=== PATIENT | female | born 1945 | race Caucasian/White ===

== ENCOUNTER 2024-07-31 09:19 | Day surgery (SDC) | payer MEDICARE, MEDICAID, SELFPAY ==
[2024-07-31] MEDS: Tropicam./Phenyleph. (1/2.5%) 5 ML BTL OS ×3 (09:47→10:03)
[2024-07-31 09:49] VITALS: BP 142/75; PULSE 81; RESP 20; TEMP 36.1; O2SAT 98
--- NOTE | 2024-07-31 10:12 | W.ANESPRE ---
General Info Date of Service Date Performed: 07/31/24 Height: 5 ft 5 in Weight: 91 kg Body Mass Index (BMI): 33.3 Surgical Procedure: Operation Date: 07/31/24 10:40 Proposed Procedure Side Surgeon p Cataract Extraction with IOL Implant Left Donte Salazar MD Actual Procedure Side Surgeon p Cataract Extraction with IOL Implant Left Donte Salazar MD Pre-Op Diagnosis Post-Op Diagnosis CATARACT OS CATARACT OS Meds Allergies and Home Medications Allergies Allergy/AdvReac Type Severity Reaction Status Date / Time letrozole Allergy Severe Other (See Verified 07/31/24 09:48 Comment) meperidine (From Demerol) Allergy Other (See Verified 07/31/24 09:48 Comment) Home Medication ?Medication ?Instructions ?Recorded albuterol sulfate 90 mcg/actuation 2 puff inhalation Q4H PRN 11/07/21 aerosol inhaler atorvastatin 40 mg tablet 40 mg PO DAILY 11/07/21 fluticasone furoate 200 1 inh inhalation DAILY 11/07/21 mcg-vilanterol 25 mcg/dose inhalation powder (Breo Ellipta) lorazepam 1 mg tablet 1 mg PO TID PRN 11/07/21 losartan 50 mg tablet 50 mg PO DAILY 11/07/21 acetaminophen 500 mg tablet 500 mg PO Q6H PRN 02/14/22 (Tylenol Extra Strength) vg-ks-oadw-FA-Ca carb-vit K 1 tab PO DAILY 02/14/22 Current Visit Medications: Current Medications Generic Name Dose Route Start Last Admin Trade Name Freq PRN Reason Stop Dose Admin Acetaminophen 1,000 mg 07/31/24 07:15 Acetaminophen 500 Mg Tab PO 08/30/24 07:14 Q4H PRN PRN Balanced Salt Solution 500 ml 07/31/24 07:15 Balanced Salt Soln.-Plus 500 Ml Bag OP 08/30/24 07:14 DIRECTED INOCENCIA Miscellaneous Medication 0 ml 07/31/24 07:15 Prednisolone 1%, Moxifloxacin 0.5%, Bromfenac 0.09% 5.6ml Btl OS 08/30/24 07:14 DIRECTED INOCENCIA Miscellaneous Medication 0 ml 07/31/24 08:00 07/31/24 10:03 Tropicam./Phenyleph. (1/2.5%) 5 Ml Btl OS 08/30/24 07:59 1 drp DIRECTED INOCENCIA Administration Tetracaine HCl 0 ml 07/31/24 07:15 Tetracaine 0.5% 4 Ml Btl OS 08/30/24 07:14 DIRECTED INOCENCIA PFSH Active Problems Active Problems: Problem Status Onset Code Posterior subcapsular age-related cataract of left eye Acute H25.042 Cortical age-related cataract, left eye Acute H25.012 Nuclear age-related cataract, left eye Acute H25.12 Hyposmia Acute R43.8 Medical History Medical History Lung cancer in remission per pt Hx of smoking Alopecia Asthma Hypertensive disorder Generalized anxiety disorder Overweight Mixed hyperlipidemia Primary malignant neoplasm of 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, 2000 - treated with radiation per patient 02/14/22 Surgical History Surgical History History of breast biopsy 2000 Hx of tubal ligation History of total replacement of right hip 1998 Hx of colonoscopy Tobacco Smoking/Tobacco Use Status: Former Tobacco Use Alcohol Alcohol Intake: never Substance Use Substance use: Daily Substance use type: marijuana Details: 07/31/24: pt smoked marijuana 07/30/24 Vital Signs and Lab Results Vital Signs Most Recent Vital Signs in EMR: Most Recent Vital Signs Temp Pulse Resp BP Pulse Ox 36.1 C L 81 20 142/75 H 98 07/31/24 09:49 07/31/24 09:49 07/31/24 09:49 07/31/24 09:49 07/31/24 09:49 Lab Results Blood Type / Crossmatch: No Data to Display Complete Blood Count: No Data to Display Complete Metabolic Panel: No Data to Display Liver Function Panel: No Data to Display Coagulation Panel: No Data to Display Cardiac Panel: No Data to Display Arterial Blood Gas: No Data to Display Venous Blood Gas: No Data to Display Pancreas Panel: No Data to Display Thyroid Panel: No Data to Display Infectious Disease: No Data to Display Blood Cultures: No Data to Display Toxicology Panel: No Data to Display Anesthesia Assessment and Plan Anesthesia History Personal History: No History of Anesthesia Complications Family History: No Family History of Anesthesia Complications Exercise Tolerance Exercise Tolerance: Metabolic Equivalents>4 Pertinent Negatives Pertinent Negatives: No Symptoms of GERD Cardiac & Pulmonary Exam Cardiac Exam: Normal S1/S2 Heart Sounds Pulmonary Exam: Clear Bilateral Breath Sounds Implantable Cardiac Device Does patient have a Pacemaker or an ICD?: No Airway Exam Known Difficult Airway: No Mallampati Class: 2 Mouth Opening: Normal (> 3cm) Thyromental Distance: Greater than 3 cm Neck Range of Motion: Full ROM Neck Circumference: Normal Teeth Condition: Normal Dentition ASA Classification ASA Score: ASA 3 Emergency Case?: No NPO Status NPO Status: NPO Clears >2 hours, Solids >8 hours Anesthesia Plan Resuscitation Status: Full Code Anesthesia Technique: MAC Anesthesia Airway Planned: Natural Airway Monitors Used: Standard Monitors
[2024-07-31 10:13] VITALS: BMI 33.3
[2024-07-31] MEDS: Povidone-Iodine Ophth 30 ML BTL (10:31)
[2024-07-31] MEDS: Tetracaine 0.5% 4 ML BTL OS (10:31)
[2024-07-31] MEDS: Balanced Salt Soln.-PLUS 500 ML BAG OP (10:37)
[2024-07-31] MEDS: Duovisc Viscoelastic System EACH 1 EACH (10:37)
[2024-07-31] MEDS: Lidocaine 1% Pres-Free 5 ML VIAL (10:38)
[2024-07-31] MEDS: Prednisolone 1%, Moxifloxacin 0.5%, Bromfenac 0.09% 5.6ML BTL OS (10:39)
[2024-07-31 10:58] VITALS: BP 124/64; PULSE 73; RESP 16; TEMP 36.8; O2SAT 98
--- NOTE | 2024-07-31 10:59 | ROE_ITS ---
Date of service: 07/31/24 Time of Service: 11:00 Operative Note Operative Note DATE OF PROCEDURE: 07/31/24 PRE-OP DIAGNOSIS: Nuclear/cortical/posterior subcapsular cataract, left eye POST-OP DIAGNOSIS: same PROCEDURE: Cataract extraction using phacoemulsification with intraocular lens implant, left eye SURGEON: Donte Salazar ANESTHESIA TYPE: Local By Surgeon and MAC Refer to Anesthesia Record PATHOLOGY: none sent COMPLICATIONS: None Patient was transported to: same day Patient's condition: stable Implants: Jd Clareon [id number] Indications: Progressive decreased vision due to cataract, left eye Procedure Description: CATARACT SURGERY OPERATIVE REPORT PREOPERATIVE DIAGNOSIS: Nuclear/cortical/posterior subcapsular cataract, left eye POSTOPERATIVE DIAGNOSIS: Same OPERATION: Cataract extraction using phacoemulsification with posterior chamber intraocular lens implant, left eye. IOL: IOL Stopperer Assembler/Model: Jd Clareon [id number] IOL Power: + 20.5 diopters IOL Serial Number: [id number] Optic Diameter: 6.0mm Haptic/Overall Diameter: 13.0mm PHACO INFO: Jd [employer]urion Vision System with OZil and Active Fluidics Cumulative Dispersed Energy (CDE): 7.77 seconds SURGEON: Donte Salazar MD, KHADIJAH ANESTHESIA: Monitored Anesthesia Care (MAC), with local sub-tenon's anesthetic infiltration COMPLICATIONS: None SPECIMENS: None INDICATIONS FOR PROCEDURE: The patient is a 79-year-old lady with history of diminished visual acuity in her left eye secondary to the development of nuclear/cortical/posterior subcapsular cataract. She is significantly symptomatic that she desires cataract surgery in attempt to improve and maximize her vision. The option of cataract surgery was offered to the patient and she wished to proceed. See office notes for detailed information. PROCEDURE: The correct surgical eye was identified and marked as the left eye and the pupil was dilated in the preoperative area using mydriatics and cycloplegics. The dilated pupil size was 7.0 mm. Oral sedation was administered in the form of an Imprimis MKO Melt (midazolam 3mg/ketamine 25mg/ondansetron 2mg). The patient was brought to the operating room where cardiopulmonary monitoring was instituted and surgical time-out was performed, confirming the correct operative eye and IOL power. Topical anesthesia was administered and ophthalmic povidone-iodine 5% was instilled into the conjunctival fornices. The dionicio-ocular area was prepped with Betadine 10% solution and draped in the usual sterile fashion for intraocular surgery, including an aperture drape. A Tegaderm transparent film dressing was cut in half and used to cover the lashes and lid margins. Care was taken to sequester the lashes and lid margins under the Tegaderm dressing. A lid speculum was placed between the lids of the operative eye and the Jd Lux[employer] Revalia operating microscope was maneuvered into position. Smita scissors were then used to make a conjunctival buttonhole approximately 6mm posterior to the limbus in the inferonasal quadrant. Blunt dissection was carried out to expose bare sclera, and a blunt-tipped sub-tenon?s anesthesia cannula was introduced and passed posteriorly along the globe where non- preserved plain lidocaine was injected into posterior sub-Tenon?s space. A sideport knife was used to make a paracentesis port. Intraocular phenylephrine/lidocaine was injected into the anterior chamber. The anterior chamber was then filled with viscoelastic. A keratome knife was used construct a two-plane clear corneal tunnel extending 2.0mm into clear cornea. A flap was raised on the anterior capsule and capsulorhexis forceps were used to complete a continuous curvilinear capsulorhexis of 5.5 mm. Balanced salt solution was then used to perform cortical cleaving hydrodissection and nuclear hydrodelineation until the lens could be freely rotated within the capsular bag. The lens nucleus was then disassembled and removed within the capsular bag and iris plane using phacoemulsification. Residual cortical material was removed using the irrigation/aspiration handpiece. The posterior capsule was carefully polished to remove as much residual lens epithelial cells as safely possible. The capsular bag was then inflated and the anterior chamber deepened with viscoelastic. The lens implant described above was inserted into the capsular bag using the Jd Autonome Injector. A Kuglen hook was used to dial the IOL into position. Residual viscoelastic was then removed first from posterior to the IOL, then from the anterior chamber using the I/A handpiece. The lens implant was noted to center nicely within the capsular bag. The incisions were stromally hydrated, and the anterior chamber was reformed using BSS. Then 0.5cc of moxifloxacin 1.0mg/ml were injected into the capsular bag and anterior chamber. The incisions were checked with a Weck spear and found to be secure. Several drops of ophthalmic povidone-iodine 5% were then applied to the eye followed by two drops of combination steroid/NSAID/antibiotic solution. The drapes were removed and a clear plastic protective eye shield was placed over the eye. The patient was then returned to Same Day Surgery in stable condition.
--- NOTE | 2024-07-31 10:59 | W.PM.DSUDISC ---
Date of service: 07/31/24 Time of Service: 10:59 Discharge Plan Disposition Patient Disposition: Home Discharge Details Attending Provider: Donte Salazar Primary Care Provider: Stephon Cantu Home Meds and New Rx's Prescriptions: No Action albuterol sulfate 90 mcg/actuation HFA aerosol inhaler 2 puff inhalation Q4H PRN atorvastatin 40 mg tablet 40 mg PO DAILY fluticasone furoate-vilanterol [Breo Ellipta] 200-25 mcg/dose blister with device 1 inh inhalation DAILY lorazepam 1 mg tablet 1 mg PO TID PRN losartan 50 mg tablet 50 mg PO DAILY acetaminophen [Tylenol Extra Strength] 500 mg tablet 500 mg PO Q6H PRN ks-gx-tejv-FA-Ca carb-vit K [Women's Multivitamin] 1 tab PO DAILY Discharge Instructions Stand Alone Forms: DSU Post-Op Cataract, Tor Little ([facility]U) Discharge Orders Discharge Orders: Discharge Order (Routine); Ordered 07/31/24 Ordered By: Donte Salazar DS: Diagnosis Discharge Diagnosis (1) Posterior subcapsular age-related cataract of left eye: Status: Resolved (2) Cortical age-related cataract, left eye: Status: Resolved (3) Nuclear age-related cataract, left eye: Status: Resolved
--- NOTE | 2024-07-31 11:15 | W.ANESPOSTOP ---
Postoperative Evaluation Date, Time and Location Date Performed: 07/31/24 Time Performed: 11:15 Patient Location: Day Surgery Unit Vital Signs Most Recent Imported Vital Signs: Most Recent Vital Signs Temp Pulse Resp BP Pulse Ox 36.8 C 73 16 124/64 98 07/31/24 10:58 07/31/24 10:58 07/31/24 10:58 07/31/24 10:58 07/31/24 10:58 Pain Score Most Recent Pain Score: Most Recent Pain Score Pain Level 0 07/31/24 10:58 Assessment Mental Status: Awake (Alert & Oriented to Patient Baseline) Airway and Respiratory Function: Patent airway with normal (patient baseline) respiratory exam Cardiovascular Function: Hemodynamically Stable Hydration Status: Adequately Hydrated Nausea & Vomiting: No Nausea or Vomiting Pain: Pt. Denies Any Pain Peripheral Nerve Block: Patient did not receive a nerve block
[2024-07-31 11:29] VITALS: BP 122/67; PULSE 74; RESP 16; TEMP 36.2; O2SAT 100
== END 2024-07-31 11:29 | disposition home or self-care (01) ==
PROVIDERS: PCP Internal Medicine; Visit Provider Ophthalmology
PROC: (CPT 66984; principal; 2024-07-31 10:30)
DX: H25.042 Posterior subcapsular polar age-related cataract, left eye (principal); H25.012 Cortical age-related cataract, left eye; H25.12 Age-related nuclear cataract, left eye
CPT/HCPCS: 66984; 00123; V2632; J2003

== ENCOUNTER 2024-08-14 05:58 | Day surgery (SDC) | payer MEDICARE, MEDICAID, SELFPAY ==
--- NOTE | 2024-08-14 06:17 | ANES.PREOP_ITS ---
General Info Date of Service Date Performed: 08/14/24 Height: 5 ft 5 in Weight: 91 kg Body Mass Index (BMI): 33.3 Surgical Procedure: Operation Date: 08/14/24 07:40 Proposed Procedure Side Surgeon p Cataract Extraction with IOL Implant Right Donte Salazar MD Meds Allergies and Home Medications Allergies Allergy/AdvReac Type Severity Reaction Status Date / Time letrozole Allergy Severe Other (See Verified 08/14/24 06:32 Comment) meperidine (From Demerol) Allergy Other (See Verified 08/14/24 06:32 Comment) Home Medication ?Medication ?Instructions ?Recorded albuterol sulfate 90 mcg/actuation 2 puff inhalation Q4H PRN 11/07/21 aerosol inhaler atorvastatin 40 mg tablet 40 mg PO DAILY 11/07/21 fluticasone furoate 200 1 inh inhalation DAILY 11/07/21 mcg-vilanterol 25 mcg/dose inhalation powder (Breo Ellipta) lorazepam 1 mg tablet 1 mg PO TID PRN 11/07/21 losartan 50 mg tablet 50 mg PO DAILY 11/07/21 acetaminophen 500 mg tablet 500 mg PO Q6H PRN 02/14/22 (Tylenol Extra Strength) td-rs-egjv-FA-Ca carb-vit K 1 tab PO DAILY 02/14/22 budesonide-formoterol See Rx Instructions inhalation 08/14/24 .COMPLEX Current Visit Medications: Current Medications Generic Name Dose Route Start Last Admin Trade Name Freq PRN Reason Stop Dose Admin Acetaminophen 1,000 mg 08/14/24 06:00 Acetaminophen 500 Mg Tab PO 09/13/24 05:59 Q4H PRN PRN Balanced Salt Solution 500 ml 08/14/24 06:00 Balanced Salt Soln.-Plus 500 Ml Bag OP 09/13/24 05:59 DIRECTED INOCENCIA Miscellaneous Medication 0 ml 08/14/24 06:00 Prednisolone 1%, Moxifloxacin 0.5%, Bromfenac 0.09% 5.6ml Btl OD 09/13/24 05:59 DIRECTED INOCENCIA Miscellaneous Medication 0 ml 08/14/24 06:00 Tropicam./Phenyleph. (1/2.5%) 5 Ml Btl OD 09/13/24 05:59 DIRECTED INOCENCIA Tetracaine HCl 0 ml 08/14/24 06:00 Tetracaine 0.5% 4 Ml Btl OD 09/13/24 05:59 DIRECTED [facility] Active Problems Active Problems: Problem Status Onset Code Cortical age-related cataract, right eye Acute H25.011 Nuclear age-related cataract, right eye Acute H25.11 Posterior subcapsular age-related cataract of left eye Resolved H25.042 Cortical age-related cataract, left eye Resolved H25.012 Nuclear age-related cataract, left eye Resolved H25.12 Hyposmia Acute R43.8 Medical History Medical History Lung cancer in remission per pt Hx of smoking Alopecia Asthma Hypertensive disorder Generalized anxiety disorder Overweight Mixed hyperlipidemia Primary malignant neoplasm of 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, 2000 - treated with radiation per patient 02/14/22 Surgical History Surgical History History of breast biopsy 2000 Hx of tubal ligation History of total replacement of right hip 1998 Hx of colonoscopy Tobacco Smoking/Tobacco Use Status: Former Tobacco Use Alcohol Alcohol Intake: never Substance Use Substance use: Daily Substance use type: marijuana Vital Signs and Lab Results Vital Signs Most Recent Vital Signs in EMR: Temp Pulse Resp BP Pulse Ox 36.4 C L 78 16 136/72 98 08/14/24 06:20 08/14/24 06:20 08/14/24 06:20 08/14/24 06:20 08/14/24 06:20 Lab Results Blood Type / Crossmatch: No Data to Display Complete Blood Count: No Data to Display Complete Metabolic Panel: No Data to Display Liver Function Panel: No Data to Display Coagulation Panel: No Data to Display Cardiac Panel: No Data to Display Arterial Blood Gas: No Data to Display Venous Blood Gas: No Data to Display Pancreas Panel: No Data to Display Thyroid Panel: No Data to Display Infectious Disease: No Data to Display Blood Cultures: No Data to Display Toxicology Panel: No Data to Display Anesthesia Assessment and Plan Anesthesia History Personal History: No History of Anesthesia Complications Family History: No Family History of Anesthesia Complications Exercise Tolerance Exercise Tolerance: Metabolic Equivalents>4 Cardiac & Pulmonary Exam Cardiac Exam: Normal S1/S2 Heart Sounds Pulmonary Exam: Clear Bilateral Breath Sounds Implantable Cardiac Device Does patient have a Pacemaker or an ICD?: No Airway Exam Known Difficult Airway: No Mallampati Class: 2 Mouth Opening: Normal (> 3cm) Thyromental Distance: Greater than 3 cm Neck Range of Motion: Full ROM Neck Circumference: Normal Teeth Condition: Normal Dentition ASA Classification ASA Score: ASA 3 Emergency Case?: No NPO Status NPO Status: NPO Clears >2 hours, Solids >8 hours Anesthesia Plan Resuscitation Status: Full Code Anesthesia Technique: MAC Anesthesia Airway Planned: Natural Airway Monitors Used: Standard Monitors Preoperative Comments:: 79 yo female for cataract. Had MKO with other eye. no issues.
[2024-08-14 06:20] VITALS: BP 136/72; PULSE 78; RESP 16; TEMP 36.4; O2SAT 98
[2024-08-14] MEDS: Tropicam./Phenyleph. (1/2.5%) 5 ML BTL OD ×3 (06:29→06:44)
[2024-08-14 06:41] VITALS: BMI 33.3
[2024-08-14] MEDS: Tetracaine 0.5% 4 ML BTL OD (07:31)
[2024-08-14] MEDS: Povidone-Iodine Ophth 30 ML BTL (07:44)
[2024-08-14] MEDS: Duovisc Viscoelastic System EACH 1 EACH (07:45)
[2024-08-14] MEDS: Balanced Salt Soln.-PLUS 500 ML BAG OP (07:46)
[2024-08-14] MEDS: Lidocaine 1% Pres-Free 5 ML VIAL (07:48)
[2024-08-14] MEDS: Prednisolone 1%, Moxifloxacin 0.5%, Bromfenac 0.09% 5.6ML BTL OD (07:50)
[2024-08-14 07:58] VITALS: BP 124/80; PULSE 78; RESP 16; TEMP 37.1; O2SAT 100
--- NOTE | 2024-08-14 08:01 | ROE_ITS ---
Date of service: 08/14/24 Time of Service: 08:01 Operative Note Operative Note DATE OF PROCEDURE: 08/14/24 PRE-OP DIAGNOSIS: Nuclear/cortical cataract, right eye POST-OP DIAGNOSIS: same PROCEDURE: Cataract extraction using phacoemulsification with intraocular lens implant, right eye SURGEON: Donte Salazar ANESTHESIA TYPE: Local By Surgeon and MAC Refer to Anesthesia Record ESTIMATED BLOOD LOSS: 0 PATHOLOGY: none sent COMPLICATIONS: None Patient was transported to: same day Patient's condition: stable Implants: Jd Clareon [id number] Indications: Progressive decreased vision due to cataract, right eye Procedure Description: CATARACT SURGERY OPERATIVE REPORT PREOPERATIVE DIAGNOSIS: Nuclear/cortical cataract, right eye POSTOPERATIVE DIAGNOSIS: Same OPERATION: Cataract extraction using phacoemulsification with posterior chamber intraocular lens implant, right eye. IOL: IOL Seal Delivery Vehicle Officer/Model: Jd Clareon [id number] IOL Power: +20.5 diopters IOL Serial Number: [id number] Optic Diameter: 6.0mm Haptic/Overall Diameter: 13.0mm PHACO INFO: [employer] Digital[employer]ion Vision System with OZil and Active Fluidics Cumulative Dispersed Energy (CDE): 6.83 seconds SURGEON: Donte Salazar MD, KHADIJAH ANESTHESIA: Monitored Anesthesia Care (MAC), with local sub-tenon's anesthetic infiltration COMPLICATIONS: None SPECIMENS: None INDICATIONS FOR PROCEDURE: The patient is a 79-year-old lady with history of diminished visual acuity in both eyes secondary to the development of bilateral nuclear/cortical cataract. She is significantly symptomatic that she desires cataract surgery and attempt to improve and maximize her vision. She has already undergone cataract surgery in the left eye and is doing well postoperatively. She now presents for cataract surgery in the right eye. See office notes for detailed information. PROCEDURE: The correct surgical eye was identified and marked as the right eye and the pupil was dilated in the preoperative area using mydriatics and cycloplegics. The dilated pupil size was 8.0 mm. Oral sedation was administered in the form of an Imprimis MKO Melt (midazolam 3mg/ketamine 25mg/ondansetron 2mg). . The patient was brought to the operating room where cardiopulmonary monitoring was instituted and surgical time-out was performed, confirming the correct operative eye and IOL power. Topical anesthesia was administered and ophthalmic povidone-iodine 5% was i nstilled into the conjunctival fornices. The dionicio-ocular area was prepped with Betadine 10% solution and draped in the usual sterile fashion for intraocular surgery, including an aperture drape. A Tegaderm transparent film dressing was cut in half and used to cover the lashes and lid margins. Care was taken to sequester the lashes and lid margins under the Tegaderm dressing. A lid speculum was placed between the lids of the operative eye and the Jd Lux[employer] Revalia operating microscope was maneuvered into position. Smita scissors were then used to make a conjunctival buttonhole approximately 6mm posterior to the limbus in the inferonasal quadrant. Blunt dissection was carried out to expose bare sclera, and a blunt-tipped sub-tenon?s anesthesia cannula was introduced and passed posteriorly along the globe where non- preserved plain lidocaine was injected into posterior sub-Tenon?s space. A sideport knife was used to make a paracentesis port. Intraocular phenylephrine/lidocaine was injected into the anterior chamber. The anterior chamber was then filled with viscoelastic. A keratome knife was used to construct a two--plane clear corneal tunnel extending 2.0mm into clear cornea. A flap was raised on the anterior capsule and capsulorhexis forceps were used to complete a continuous curvilinear capsulorhexis of 5.5mm. Balanced salt solution was then used to perform cortical cleaving hydrodissection and nuclear hydrodelineation until the lens could be freely rotated within the capsular bag. The lens nucleus was then disassembled and removed within the capsular bag and iris plane using phacoemulsification. Residual cortical material was removed using the I/A handpiece. The posterior capsule was carefully polished to remove as much residual lens epithelial cells as safely possible. The capsular bag was then inflated and the anterior chamber deepened with cohesive viscoelastic. The lens implant described above was inserted into the capsular bag using the Jd Autonome Injector. A Kuglen hook was used to dial the IOL into position. Residual viscoelastic was then removed first from posterior to the IOL, then from the anterior chamber using the I/A handpiece. The lens implant was noted to center nicely within the capsular bag. The incisions were stromally hydrated, and the anterior chamber was reformed using BSS. Then 0.5cc of moxifloxacin 1.0mg/ml were injected into the capsular bag and anterior chamber. The incisions were checked with a Weck spear and found to be secure. Several drops of ophthalmic povidone-iodine 5% were then applied to the eye followed by two drops of combination steroid/NSAID/antibiotic solution. The drapes were removed and a clear plastic protective eye shield was placed over the eye. The patient was then returned to Same Day Surgery in stable condition.
--- NOTE | 2024-08-14 08:01 | W.PM.DSUDISC ---
Date of service: 08/14/24 Time of Service: 08:01 Discharge Plan Disposition Patient Disposition: Home Discharge Details Attending Provider: Donte Salazar Primary Care Provider: Stephon Cantu Home Meds and New Rx's Prescriptions: No Action albuterol sulfate 90 mcg/actuation HFA aerosol inhaler 2 puff inhalation Q4H PRN atorvastatin 40 mg tablet 40 mg PO DAILY fluticasone furoate-vilanterol [Breo Ellipta] 200-25 mcg/dose blister with device 1 inh inhalation DAILY lorazepam 1 mg tablet 1 mg PO TID PRN losartan 50 mg tablet 50 mg PO DAILY acetaminophen [Tylenol Extra Strength] 500 mg tablet 500 mg PO Q6H PRN sy-ed-ltgo-FA-Ca carb-vit K [Women's Multivitamin] 1 tab PO DAILY budesonide-formoterol [Symbicort] See Rx Instructions inhalation .COMPLEX Rx Instructions: inhaled; Discharge Instructions Stand Alone Forms: DSU Post-Op CataractTor (DSU) Discharge Orders Discharge Orders: Discharge Order (Routine); Ordered 08/14/24 Ordered By: Donte Salazar DS: Diagnosis Discharge Diagnosis (1) Cortical age-related cataract, right eye: Status: Resolved (2) Nuclear age-related cataract, right eye: Status: Resolved
--- NOTE | 2024-08-14 08:11 | W.ANESPOSTOP ---
Postoperative Evaluation Date, Time and Location Date Performed: 08/14/24 Time Performed: 08:11 Patient Location: Day Surgery Unit Vital Signs Most Recent Imported Vital Signs: Most Recent Vital Signs Temp Pulse Resp BP Pulse Ox 37.1 C 78 16 124/80 100 08/14/24 07:58 08/14/24 07:58 08/14/24 07:58 08/14/24 07:58 08/14/24 07:58 Pain Score Most Recent Pain Score: Most Recent Pain Score Pain Level 0 08/14/24 07:58 Assessment Mental Status: Awake (Alert & Oriented to Patient Baseline) Airway and Respiratory Function: Patent airway with normal (patient baseline) respiratory exam Cardiovascular Function: Hemodynamically Stable Hydration Status: Adequately Hydrated Nausea & Vomiting: No Nausea or Vomiting Pain: Pt. Denies Any Pain Peripheral Nerve Block: Patient did not receive a nerve block
[2024-08-14 08:25] VITALS: BP 122/71; PULSE 80; RESP 16; TEMP 36.8; O2SAT 98
== END 2024-08-14 08:27 | disposition home or self-care (01) ==
LOC: SUR 05:58
PROVIDERS: PCP Internal Medicine; Visit Provider Ophthalmology
PROC: (CPT 66984; principal; 2024-08-14 07:30)
DX: H25.011 Cortical age-related cataract, right eye (principal); H25.11 Age-related nuclear cataract, right eye; Z98.42 Cataract extraction status, left eye
CPT/HCPCS: 66984; 00123; V2632; J2003